=== PATIENT | male | born 1975 | race Native Hawaiian/Other Pacific Islander ===

== ENCOUNTER 2016-12-20 17:49 | Emergency (ER) | payer MEDICAID ==
[2016-12-20 21:27] VITALS: BP 127/74
== END 2016-12-20 21:27 | disposition home or self-care (01) ==
LOC: ED 17:49
DX: N39.0 Urinary tract infection, site not specified (principal)
CPT/HCPCS: J1885

== ENCOUNTER 2017-12-04 21:18 | Emergency (ER) | payer SELFPAY ==
[~2017-12-04] VITALS: Ht 175.3 cm; Wt 78.9 kg
[2017-12-04 21:48] VITALS: Ht 175.3 cm; Wt 78.9 kg
[2017-12-04 23:35] VITALS: BP 108/72
== END 2017-12-04 23:30 | disposition home or self-care (01) ==
LOC: ED 21:18
DX: T15.01XA Foreign body in cornea, right eye, initial encounter (principal); W26.8XXA Contact with other sharp object(s), not elsewhere classified, initial encounter; Y93.89 Activity, other specified; Y92.89 Other specified places as the place of occurrence of the external cause; Y99.8 Other external cause status